=== PATIENT | female | born 1975 ===

== ENCOUNTER 2024-11-30 07:32 | Outpatient (REF) | payer BC, SELFPAY ==
--- NOTE | ~2024-11-30 | CT_ITS ---
EXAMINATION: CT CHEST WITHOUT CONTRAST CLINICAL INFORMATION: Interstitial pulmonary disease, unspecified. J64.9. COMPARISON: May 31, 2023. TECHNIQUE: Multidetector volumetric CT imaging of the chest was done. Axial MIP volume rendering provided. Sagittal and coronal reformatted images were obtained. This CT examination was performed using dose optimization techniques as appropriate, variously including the following: *Automated exposure control *Adjustment of mA and/or kV according to patient size (this includes techniques or standardized protocols for targeted exams where dose is matched to indication/reason for exam; i.e. extremities or head) *Use of iterative reconstruction technique DLP: 123 mGy centimeter. FINDINGS: CASHIER: Good inspiration exam. Cardiomediastinal silhouette size is normal. Vascular clips right upper quadrant abdomen. Patient's large body habitus. Both upper extremities at the size of the head. LUNGS: Multifocal, nonconfluent, peripheral areas of bronchiectasis and or honeycombing involving mostly the upper and to a lesser extent lower lung lobes. No gross pulmonary nodules. Respiratory airways is patent.. No gross volume loss. No hyperinflation. MEDIASTINUM: Nonspecific prominent less than 1 cm lymph nodes. The heart is small. Small pericardial effusion. No aneurysm in the thoracic aorta. Calcified plaques in the coronary arteries. Prominent left thyroid lobe. Hiatal hernia, small to moderate size. CORONARY ARTERY CALCIFICATION: Calcified plaques in the LAD. PLEURA: No calcified pleural plaques. No pneumothorax. No hemothorax. No pleural effusion. AXILLA: Nonspecific prominent, less than 16 mm lymph nodes, bilaterally. UPPER ABDOMEN: Hiatal hernia, small to moderate size. Vascular clips at the gallbladder fossa likely prior cholecystectomy.. OSSEOUS STRUCTURES: Mild multilevel spondylosis without acute fracture or listhesis. Sternum is intact. No acute rib fractures. CT/CT chest wo IV con IMPRESSION: . Multifocal, peripheral, bronchiectasis and honeycombing, bilaterally. Overall stable appearance of the lungs/chest.. Fleischner guidelines were followed. Electronically signed by: Ti Pillai MD 11/30/2024 08:36 AM EDT
--- OUTSIDE RECORDS SUMMARY | 2024-11-30 07:36 | XMS_ITS | Clinical Summary ---
Author Organization [facility] Address [address] [facility] [address] [place] [address] Phone Care Team Providers Care Service Or Work Dispatcher Name Role Phone Meghann Roth MD Primary Care Provider Allergies Active Allergy Reactions Criticality Noted Date Comments Sulfa (Sulfonamide Antibiotics) Rash Low 10/21 Medications cycloSPORINE (RESTASIS) 0.05 % suspension Place 1 drop into each eye 2 (two) times a day. 3 Active albuterol 90 mcg/actuation inhaler Inhale 2 puffs into the lungs every 6 (six) hours as needed for wheezing. Active syringe with needle 1 mL 25 gauge x 5/8 SyrgIndication s:Seropositive rheumatoid arthritis Use to inject methotrexate once weekly as directed 50 each 1 4 Active sharps bin-insulin syrin-needl 1/2 mL 30 x 1/2 Syrg 1 each by Miscellaneous route as needed. 1 each 4 Active folic acid (FOLVITE) 1 MG tablet Take 1 tablet (1 mg total) by mouth daily. Except the day you take your methotrexate 90 tablet 1 4 Active riTUXimab (RITUXAN) 10 mg/mL injectionIndic ations:Rheumat oid arthritis involving multiple sites with positive rheumatoid factor Inject 100 mL (1000 mg total) into the vein in Week 0, Week 2, then every 26 weeks 300 mL 4 5 Active DULoxetine (CYMBALTA) 30 MG capsule Take 30 mg by mouth daily. Active hydroxychloroq uine (PLAQUENIL) 200 mg tabletIndicati ons:Long-term use of Plaquenil Take with food as follows: 1.5 tabs once daily OR 1 tab alternating with 2 together for average dose 300 mg daily 135 tablet 1 5 Active cevimeline (EVOXAC) 30 mg capsuleIndicat ions:Secondary Sjogren's syndrome Take 1 capsule (30 mg total) by mouth 3 (three) times a day. With food as needed for dry mouth 270 capsule 1 5 Active methotrexate sodium 25 mg/mL injectionIndic ations:Seropos itive rheumatoid arthritis Inject 0.8 mL (20 mg total) under the skin once a week. rotate injection sites 12 mL 5 Active omeprazole (PRILOSEC) 20 MG capsule TAKE 1 CAPSULE(20 MG) BY MOUTH DAILY 30 MINUTES BEFORE A MEAL NEEDED FOR HEARTBURN 90 capsule 5 Active Active Problems Problem Noted Date Diagnosed Date Encounter for monitoring rituximab therapy 03/02 Assessment & Plan (07/11/2024 5:44 PM EDT): Request most recent lung imaging from [facility]. I have ordered immunoglobulins to be drawn with routine labs prior to upcoming rituximab cycle. Assessment & Plan (03/02/2024 9:24 AM EST): Routine monitoring labs and baseline quant TB with next routine lab draw Microcytic anemia 03/02/2024 Assessment & Plan (03/02/2024 9:26 AM EST): Unlikely to be due directly to rheumatoid arthritis or rheumatoid arthritis medications; ? underlying thalassemia Postmenopausal 03/02/2024 Encounter for methotrexate monitoring 01/11/2024 Assessment & Plan (03/02/2024 9:25 AM EST): No AEs to current SC dose; compliant with folic acid Assessment & Plan (01/11/2024 1:36 PM EDT): Updated HCV and quant TB testing with routine labs today. She is amenable to flu shot. Vitamin D deficiency, unspecified 01/11/2024 Overview (01/11/2024): Menopause 2022 Assessment & Plan (01/11/2024 1:37 PM EDT): Baseline D; discussion of baseline DEXA deferred to next f/u Seropositive rheumatoid arthritis 12/20/2022 Overview (07/11/2024): Dx'd in her 30s; no Raynaud's; RA-ILD follows with transport coordinator Dr. Hoang at [facility] Multiple DMARDs ultimately lost efficacy, including: Methotrexate (oral resulted in nausea) [no SC methotrexate] Leflunomide Etanercept Adalimumab Infliximab Tocilizumab SC (?) abatacept Tofacitinib Upadacitinib [No sarilumab] Rituximab 06/2023 - current Assessment & Plan (07/11/2024 5:42 PM EDT): Remains with highly active and disabling disease with associated ILD. She reports significant symptomatic improvement only in the past week. She has been on high- dose prednisone taper starting at 60 mg daily, currently on 20 mg daily. She is due for her next rituximab cycle and will call to schedule. She should continue hydroxychloroquine given that she has failed or been unable to tolerate both methotrexate and leflunomide. I have sent new prescription to continue slow prednisone taper by 5 mg every 2 weeks. Assessment & Plan (03/02/2024 9:24 AM EST): Severe disease but symptomatic benefit of very recent rituximab infusion plus prednisone 15 mg daily; tolerating SC methotrexate w/o AEs. Trial decrease prednisone to 10 mg daily and will taper slowly as tolerated. Clinical monitoring to determine if / when to repeat rituximab cycle (will likely need at the 4 month rather than 6 month mel). 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 Prolonged AM stiffness of >4 hours (longstanding baseline). She has had loss of efficacy to multiple DMARDs as above; documented to have significant improvement following her first 2 rituximab cycles but now with clearly active and disabling disease. Lengthy d/w patient re: tx options today, specifically switch to sarilumab +/- methotrexate SC or continued / more frequent rituximab cycles +/- methotrexate SC. She is amenable to adding SC methotrexate to current rituximab regimen and possibly decreasing her dosing interval from q6 to q4-5 months. I have also sent rx for prednisone taper 15 mg daily taper by 5 mg every 10 days for short term benefit. She would like to be seen in [place] for 2nd opinion, which I agree is reasonable. 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 Assessment & Plan (10/24/2023 4:33 PM EDT): Seropositive rheumatoid arthritis much better controlled after 2 doses of Rituxan infusion. He has chronic deformities but no active synovitis. Her next infusion is not due until January of this year. Sent her for some baseline labs today. Suggested she use a plexiglass barrier during cold and flu season. She will bring in her [facility] paperwork which I will sign. Assessment & Plan (06/20/2023 1:40 PM EDT): Seropositive rheumatoid arthritis not controlled on Actemra. She has warm and painful synovitis in multiple joints. She also has lung involvement with interstitial lung disease and increased shortness of breath and cough. I will discontinue Actemra and start her on Rituxan infusions 14 days apart. Repeat Rituxan every 6 months. She can use prednisone rarely as needed. Gave her an intramuscular injection of triamcinolone 80 mg to help relieve her stiffness and swelling. Assessment & Plan (04/24/2023 6:41 PM EST): Seropositive rheumatoid arthritis not controlled on weekly Actemra injections and as needed prednisone. She has been off her medication for a while since she was recovering from her COVID-pneumonia and strep. It will take a while for her to regain her baseline. She will be seeing Dr. Hoang soon for pulmonary opacities which could be either from the COVID and pneumonia or from rheumatoid arthritis. I have asked her to only use prednisone as needed. Assessment & Plan (12/20/2022 1:55 PM EDT): Seropositive rheumatoid arthritis not controlled with active synovitis and prolonged morning stiffness on daily Rinvoq. She has previously been treated on several other medications which stopped working. We will start her on weekly injections of Actemra with the hope that it controls the inflammation. We will get some basic labs today including hepatitis B, C and QuantiFERON gold. Primary osteoarthritis involving multiple joints 12/20/2022 Assessment & Plan (10/24/2023 4:34 PM EDT): Your arthritis in multiple joints with no swelling. She can continue with Tylenol arthritis as needed. Assessment & Plan (06/20/2023 1:36 PM EDT): Osteoarthritis in multiple joints. She can use Tylenol arthritis as needed Assessment & Plan (04/24/2023 6:42 PM EST): Osteoarthritis in multiple joints. She can take Tylenol 650 mg as needed. Assessment & Plan (12/20/2022 1:56 PM EDT): Osteoarthritis in multiple joints with more pain at the end of her busy day. She can safely try Tylenol arthritis 650 mg as needed. Secondary Sjogren's syndrome 12/20/2022 Overview (07/11/2024): Pilocarpine switched to cevimeline for efficacy 02/2024 Assessment & Plan (07/11/2024 5:40 PM EDT): Tolerating cevimeline with improved symptomatic benefit compared to pilocarpine Assessment & Plan (07/11/2024 5:39 PM EDT): >>ASSESSMENT AND PLAN FOR SJOGREN'S SYNDROME WITH KERATOCONJUNCTIVITIS SICCA WRITTEN ON 12/20/2022 1:57 PM BY VANNESSA REEVES MD Secondary Sjogren's syndrome with keratoconjunctivitis sicca and dry eyes and dry mouth. Continue with Restasis and rewetting eyedrops. Her symptoms should improve once her overall inflammation is controlled. Assessment & Plan (07/11/2024 5:39 PM EDT): >>ASSESSMENT AND PLAN FOR SJOGREN'S SYNDROME WITH KERATOCONJUNCTIVITIS SICCA WRITTEN ON 04/24/2023 6:42 PM BY VANNESSA REEVES MD Sicca symptoms from secondary Sjogren's due to seropositive RA. She can continue with pilocarpine as needed. Assessment & Plan (07/11/2024 5:39 PM EDT): >>ASSESSMENT AND PLAN FOR SJOGREN'S SYNDROME WITH KERATOCONJUNCTIVITIS SICCA WRITTEN ON 06/20/2023 1:36 PM BY VANNESSA REEVES MD Secondary Sjogren's with continued dry eyes and dry mouth. Continue with Salagen and Restasis eyedrops. Assessment & Plan (07/11/2024 5:39 PM EDT): >>ASSESSMENT AND PLAN FOR SJOGREN'S SYNDROME WITH KERATOCONJUNCTIVITIS SICCA WRITTEN ON 10/24/2023 4:34 PM BY VANNESSA REEVES MD Sicca symptoms due to Sjogren's. Continue with pilocarpine as needed. Assessment & Plan (07/11/2024 5:39 PM EDT): >>ASSESSMENT AND PLAN FOR SJOGREN'S SYNDROME WITH KERATOCONJUNCTIVITIS SICCA WRITTEN ON 03/02/2024 9:25 AM BY TRINI BRISENO MD, MPH Trial cevimeline to replace pilocarpine, which is only sometimes effective Encounters Date Type Department Care Team Description 09/24/2024 8:30 AM EDT Infusion [facility] [address] [place] [address] Trini Briseno MD, MPH Seropositive rheumatoid arthritis (Primary Dx) 09/17/2024 Refill [facility] Rheumatology [address] [place] [address] Trini Briseno MD, MPH Medication Refill from Last 3 Months Immunizations Immunization Administration Dates Next Due INFLUENZA, SPLIT VIRUS, TRIVALENT PF 01/11/2024 Family History Medical History Relation Comments Rheumatoid arthritis Maternal Aunt Rheumatoid arthritis Paternal Cousin Relation Status Comments Maternal Aunt Paternal Cousin Social History Tobacco Use Types Packs/Day Years Used Date Smoking Tobacco: Never Smokeless Tobacco: Never Tobacco Cessation:Counseling Given: Not Answered Alcohol Use Standard Drinks/Week Comments Yes 0 (1 standard drink = 0.6 oz pur e alcohol) occassionally Education Answer Date Recorded Are you interested in more education? Not on deric e 10/06/2022 Are you concerned about learning? Not on file 10/06/2022 No 10/06/2022 No 10/06/2022 Digital Access Answer Date Recorded No 10/06/2022 No 10/06/2022 Reliable internet access at home? Not on file 10/06/2022 Device with a working camera? Not on file Comments Unknown Sex and Gender Information Value Date Recorded Sex Assigned at Not on file Legal Sex Female 1:11 PM EDT Gender Identity Not on file Sexual Orientation Not on file Last Filed Vital Signs Vital Sign Reading Time Taken Comments Blood Pressure 140/85 09/24/2024 2:17 PM EDT Pulse 98 09/24/2024 2:17 PM EDT Temperature 36.4 C (97.5 F) 09/24/2024 2:17 PM EDT Respiratory Rate 18 09/24/2024 2:17 PM EDT Oxygen Saturation 96% 09/24/2024 2:17 PM EDT Inhaled Oxygen Concentration - - Weight 77.6 kg (171 lb) 09/24/2024 8:30 AM EDT Height 162.6 cm (5' 4.02 ) 07/11/2024 3:18 PM ED T Body Mass Index 29.34 07/11/2024 3:18 PM EDT Plan of Treatment Upcoming Encounters Date Type Department Care Team (Late st Contact Info) Description 12/03/2024 10:10 AM EDT Office Visit [facility] Rheumatology [address] [place] [address] Trini Briseno MD, MPH [address] [facility], [address] [place] [address] 12/26/2024 8:15 AM EDT Appointment [facility], Bone Density - [facility] [address] [place] [address] Trini Briseno MD, MPH [address] [place] [address], [address] [place] [address] [email or web address] Health Maintenance Due Date Last Done Comments LIPID PANEL 1973 DEPRESSION SCREENING 1985 HIV ONE-TIME SCREENING (18-65 YEARS) 10/21/1991 ZOSTER VACCINES (1 of 2) 1992 PAP SMEAR 1994 COLOGUARD 2018 COLONOSCOPY 2018 COLORECTAL CANCER SCREENING 2018 FIT TEST 2018 FOBT 2018 SIGMOIDOSCOPY 2018 VIRTUAL COLONOSCOPY 2018 PNEUMOCOCCAL VACCINES (50+ years) (2 of 2 - PCV) 10/28/2018 10/28/2017 INFLUENZA VACCINE (#1) 2024 , 03/18/2023, 11/23/2020, Additional history exists COVID-19 VACCINE ( season) 2024 02/09/2021, 05/27/2020 MAMMOGRAM 07/21/2025 07/22/2023, 10/06/2021 Adult Td,Tdap Booster 10/29/2025 10/30/2015 SCREENING FOR DIABETES 08/28/2027 08/27/2024 HEPATITIS C SCREENING Completed 01/11/2024 SMOKING STATUS SCREENING (Once After 26 Yrs) Completed 07/11/2024 HEPATITIS A VACCINES Aged Out No long er eligible based on patient's age to complete this topic HIB VACCINES Aged Out No longer eligi ble based on patient's age to complete this topic MENINGOCOCCAL VACCINES (ACWY) Aged Out No longer eligible based on patient's age to complete this topic MENINGOCOCCAL VACCINES (B) Aged Out N o longer eligible based on patient's age to complete this topic Medical Devices Not on file Procedures Procedure Name Priority Date/Time Associated Diagnosis Comments HEPATITIS C ANTIBODY, QUALITATIVE Routine 01/11/2024 10:51 AM EDT High risk medication use from Last 3 Months or Most Recently Relevant to Health Maintenance Results * Hepatitis C antibody, qualitative (01/11/2024 10:51 AM EDT) HCV NON-REACTIV E NON-REACTI VE [facility] Blood 01/11/2024 10:5 1 AM EDT 01/11/2024 10:59 AM EDT us Trini Briseno MD, MPH LAB BLOOD ORDERABLES Fin al Result [facility] [address] [place] [address] from Last 3 Months or Most Recently Relevant to Health Maintenance Insurance [employer] [facility] [employer] [facility] [employer] [facility] Care Teams Service Or Work Dispatcher Relationship Specialty Start Date End Date Meghann Roth MD [address] [id number] PCP - General Family Medicine 10/18/23 Additional Source Comments The information contained in this document represents components of the legal health record. It is not the complete legal health record.[facility]
--- OUTSIDE RECORDS SUMMARY | 2024-11-30 07:36 | XMS_ITS | Patient Health Record ---
Author Organization [facility] Address [address] [place] [address] Care Team Providers Care Medicaid Billing Clerk Name Role Phone Cayden Vick MD, Shawna Camp Primary Care Prov ider Unavailable Black, Mary Unavailable [phone] Allergies Allergen (clinical drug ingredient) Drug/Non Drug Allergy documented on EMR Reaction Allergy Type Onset Date Status sulfa Unknown Drug Allergy Active Reason For Referral No Information Medications Medication SIG (Take, Route, Fr equency, Duration) Notes Start Date End Date Status Enbrel Active Leflunomide 10 MG 1 tablet Orally Once a day Active Social History Tobacco use other than smoking: Question Answer Notes Are you an other tobacco user? No Problems Problem Type SNOMED Code ICD Code Onset Dates Problem Status W/U Status Risk Notes Problem Rheumatoid arthritis (07378103) Rheumatoid arthritis (M06.9) Active confirmed Problem Sjogrens syndrome (77548579) Sjogrens syndrome (M35.00) Active confirmed Plan Of Treatment No Information Insurance Providers Payer Name Payer Address Payer Phone Subscriber Number Group Number Insured Name Patient Relationship to Insured Coverage Start Date Coverage End Date [facility] [address] [place] [address] [id number] Adalberto Cazares Spouse - patient is the spouse of the insured Medical (General) History Medical History History ICD Code rheumatoid arthritis asthma Sinus conditions Sjogren syndrome Surgical History Surgery Date(Month/Year) cholecystectomy 1991 Hospitalization History Reason Date(Month/Year) [facility] [place] pt had the flu & pneumo inderjit 04/25/16
== END 2024-11-30 07:33 | disposition home or self-care (01) ==
LOC: HO.CT 07:32
PROVIDERS: PCP Student in an Organized Health Care Education/Training Program; Visit Provider Hospitalist
DX: J84.9 Interstitial pulmonary disease, unspecified (principal)
CPT/HCPCS: 71250

== ENCOUNTER → 2024-11-30 07:35 | Outpatient (BNV) | payer BC, SELFPAY | PROVIDERS: PCP Student in an Organized Health Care Education/Training Program; Visit Provider Radiology Diagnostic Radiology | DX: J47.9 Bronchiectasis, uncomplicated (principal) | CPT/HCPCS: 71250 ==

== ENCOUNTER 2024-12-10 08:36 | Outpatient (AMB) | payer BC, SELFPAY ==
--- NOTE | 2024-12-10 08:43 | MHC.OFFVIS ---
Vital Signs 12/10/24 08:44 Height 5 ft 4 in Weight 170 lb 13.732 oz BMI 29.3 BP 114/58 L Blood Pressure Location Lt brachial Position Sitting Pulse 81 Pulse Source Pulse Oximeter Pulse Oximetry (%) 99 Oxygen Delivery Method Room Air Intake Visit Reasons: [employer] Salesperson Required: No Allergies Sulfa Drugs Adverse Reaction (Severe, Uncoded 08/07/24 14:23) Rash HPI Comments Details: The patient is a 49 year woman with known history of rheumatoid arthritis and connective tissue disease. she was being evaluated for chest discomfort. She did undergo a CT scan of the chest from 2019 at [facility] that I personally reviewed. It demonstrated she had evidence of subpleural interstitial lung disease in addition to that thickening of the pleura suggesting component of pleuritis. This has resulted in significant discomfort with pleuritic chest pain and shortness of breath. Moderate to severe. She is also having increasing shortness of breath. Currently she is on Actemra for connective tissue disease but she continues to be active. After reviewing her last CT scan of the chest it appears that the findings are consistent with her underlying connective tissue disease. Previously she did undergo a bronchoscopy and she did have a MRSA infection. At this point she has not congested will have any signs or symptoms to suggest a lower respiratory infection. Therefore, I did speak to her bakery demonstrator and did recommend considering rituximab as a way to treat her connective tissue disease and also her underlying interstitial lung disease. 06/09/2023 the patient is here for a pulmonary follow-up visit. Overall she still complains of the pleuritic chest discomfort. Moderate severity. Although seems better than the last time she came in. She also continues to have ongoing discomfort of her small joints. The patient also has a dry mouth. All consistent with her diagnosis of RA and also Sjogren's disease. She is tried multiple medications and really have not had good control of her symptoms. The patient also had a CT scan of chest which we personally reviewed. Is consistent with reticular disease consistent with interstitial disease related to her underlying connective tissue disease. Appears to be more fibrotic in nature therefore is at risk for developing UIP like pattern. she will be following up with her bakery demonstrator. It is reassuring that she does not have any ground-glass opacities. If indeed there is any worsening of disease progression of the interstitial lung disease will send consider Ofev. In the meantime the patient will follow-up with Rheumatology regarding the possibility of starting rituximab as a very good option to treat her connective tissue disease and also her underlying interstitial lung disease I did advise him to get vaccinated. She will get her Prevnar vaccine today. She should all her vaccines up-to-date before starting Rituxan since it will likely affect her ability to have effective response to vaccines. I also personally reviewed her PFTs demonstrating a mild restrictive ventilatory defect consistent with interstitial lung disease and also mild diffusion impairment secondary to the above. 09/13/2023 the patient is here for pulmonary follow-up visit. She did start the Rituxan. He is tolerating it well. Initially she did have some adverse symptoms. There were transient. She did require some steroids while on the Rituxan. Now she is completely off. She is working on weight management. She has been exercising more regularly since she is less short of breath. The patient feels like she is able to do more physical activity without becoming breathless. This is all reassuring. We can hold off on antifibrotic therapy based on her improvement. Will have her come back in about 6-7 months with PFTs to see her response to therapy. She is going to go for blood work today. When she comes back during her follow-up will decide about further imaging studies done. 05/03/2024 the patient is here for pulmonary follow-up visit. The patient overall has been doing okay. Although she still having hard time with her arthritis. Still having significant discomfort. Specially the small joints. She has been on Rituxan and also methotrexate and still not reaching that good control. She is looking to get 2nd opinion in [place]. From a pulmonary standpoint the patient did have pulmonary function studies today. She does have dyspnea on exertion. Mild the in severity. Her PFTs did demonstrate a mild restriction consistent with interstitial lung disease. Her last CT scan was back in the spring. Will go ahead and repeat her CT scan in the next 6 months to see the progression if any of disease. In the meantime current therapy for her connective tissue disease that will continue to try to treat the inflammatory changes of the lungs. For her respiratory symptoms specially since getting worse will going to go ahead and start her on a maintenance inhaler disease that is provide some relief as well. 12/10/2024 the patient is here for a pulmonary follow-up visit. Overall she is doing well from a respiratory status. Apparently last week she did have some pleuritic discomfort in the left hemithorax [id number] severity. Pleuritic in nature. But today is actually gone. She is feeling better. She continues some Rituxan. She did follow-up with Rheumatology. They did recommend going up to [place] for secondary opinion. They did bring up the question of a seipoint nerve stimulator for the vagus nerve that has been shown to help with connective tissue conditions. She is going to follow-up with them at that time for now she will continue on therapy. We did review her recent CT scan of the chest. Personally by me. I do not see any significant progression of her interstitial lung disease at this time which is reassuring. Seems to responding to the current regimen well. If she does develop some recurrent pleuritic discomfort she can always take some Motrin as needed. I will send her a script to the pharmacy. [facility] Medical History (Updated 08/07/24 @ 14:23 by Felicita Avelar) Axillary adenopathy Pleuritic chest pain Asthma Pleuritis ILD (interstitial lung disease) Rheumatoid arthritis Social History Patient Tobacco Use Status: Never used Tobacco Review of Systems Const Denies fever(s) and Denies malaise Eyes Reports dry eyes ENT Reports dry mouth Card Denies chest pain and Reports dyspnea on exertion Resp Denies pain on inspiration, Denies pain with cough, Reports dyspnea on exertion and Denies wheezing GI Reports no additional complaints Musc Reports myalgias, Reports deformity, Reports arthralgias, Reports joint swelling and Reports stiffness Skin/Breast Denies rash Neuro Reports no additional complaints Felice/Lymph Denies lymphadenopathy Aller/Immun Denies wheezing Physical Exam Vital Signs: Last Vital Signs Pulse 81 12/10/24 08:44 BP 114/58 L 12/10/24 08:44 Pulse Ox 99 12/10/24 08:44 Oxygen Delivery Method Room Air 12/10/24 08:44 BMI result Body Mass Index 29.3 Const General: comfortable HEENT Head: Yes normocephalic Neck Neck: Yes supple Chest Chest palpation & inspection: normal inspection of the chest Resp Effort & Inspection: normal respiratory effort Auscultation: diminished lung sounds Cardio Heart sounds: S1 normal heart sound present and S2 normal heart sound present GI Palpation (GI): Soft to palpation Skin General skin exam: no rashes or lesions noted Extrem General: Yes no clubbing, cyanosis or edema Assessment & Plan Assessment & Plan (1) ILD (interstitial lung disease): Code(s): J84.9 - Interstitial pulmonary disease, unspecified Category: Medical (2) Asthma: Code(s): J45.909 - Unspecified asthma, uncomplicated Category: Medical Qualifiers: Asthma severity: mild Asthma persistence: intermittent Asthma complication type: uncomplicated Qualified Code(s): J45.20 - Mild intermittent asthma, uncomplicated (3) Pleuritis: Code(s): R09.1 - Pleurisy Category: Medical (4) Pleuritic chest pain: Code(s): R07.81 - Pleurodynia Category: Medical (5) Rheumatoid arthritis: Code(s): M06.9 - Rheumatoid arthritis, unspecified Category: Medical Qualifiers: Rheumatoid arthritis location: unspecified site Rheumatoid factor presence: unspecified presence Qualified Code(s): M06.9 - Rheumatoid arthritis, unspecified Plan SARAH BETH as needed continue Rituxan no OFEV, no evidence of ILD progression benzonates as needed start Astelin nasal spray Advair HFA NSAIDS as needed barium swallow F/U 6 months Orders: Orders [place] barium swallow Today K21.9 - Gastro-esophageal reflux disease without esophagitis Medications: New azelastine administer into each nostril 2 sprays intranasal BID 30 mL 6RF 30 days ibuprofen 600 mg PO Q8H PRN 30 tabs 0RF pain 30 days Coding Level of Care Code Est Pt Level 4 (23742) Complex EM visit Add On G2211 Diagnoses ILD (interstitial lung disease) J84.9 Mild intermittent asthma without complication J45.20 Asthma severity: mild Asthma persistence: intermittent Asthma complication type: uncomplicated Pleuritis R09.1 Pleuritic chest pain R07.81 Rheumatoid arthritis, involving unspecified site, unspecified whether rheumatoid factor present M06.9 Rheumatoid arthritis location: unspecified site Rheumatoid factor presence: unspecified presence Time Spent (min) 17
[2024-12-10 08:44] VITALS: BP 114/58; PULSE 81; O2SAT 99; BMI 29.3
--- OUTSIDE RECORDS SUMMARY | 2024-12-10 09:57 | XMS_ITS | Encounter Summary ---
Author Organization [facility] Address [address] [place] [address] Phone Care Team Providers Care Battery Builder Name Role Phone Meghann Roth MD Primary Care Provider [phone] Reason for Visit * Reason Onset Date Comments Imaging 12/03/2024 Encounter Details Date Type Department Care Team (Late st Contact Info) Description 12/03/2024 Telephone [facility] Rheumatology [address] [place] [address] Trini Hernandez MD, MPH [address], [address] [place] [address] [email or web address] Imaging Social History Tobacco Use Types Packs/Day Years Used Date Smoking Tobacco: Never Smokeless Tobacco: Never Alcohol Use Standard Drinks/Week Comments Yes 0 [...] on file Sexual Orientation Not on file documented as of this encounter Progress Notes * Jaja Boucher MA - 12/05/2024 1:53 PM EDT 11/30/2024 CT Chest obtained and uploaded to patient's chart. Can be found in Media. * Emely Caal CMA - 12/03/2024 11:28 AM EDT Request faxed to [facility] * Trini Hernandez MD, MPH - 12/03/2024 10:35 AM EDT Pls track down CT chest findings [place] 11/2024 ty documented in this encounter Plan of Treatment Upcoming Encounters Date Type Department Care Team (Late st Contact Info) Description 12/26/2024 8:15 AM EDT Appointment [facility], [facility] [address] [place] [address] Trini Hernandez MD, MPH [address] [place] [phone] 01/07/2025 1:10 PM EDT Office Visit [facility] Rheumatology [address] [place] [phone] Trini Hernandez MD, MPH [address] [place] [phone] documented as of this encounter Visit Diagnoses Not on filedocumented in this encounter Care Teams Battery Builder Relationship Specialty Start Date End Date Meghann Roth MD [address] [phone] PCP - General Family Medicine 10/18/23 documented as of this encounter Additional Source Comments The information contained in this document represents components of the legal health record. It is not the complete legal health record.[facility]
--- OUTSIDE RECORDS SUMMARY | 2024-12-10 09:57 | XMS_ITS | Encounter Summary ---
Author Organization [facility] Address [address] [place] [address] Phone Care Team Providers Care Geoint Analyst Name Role Phone Meghann Roth MD Primary Care Provider [phone] Reason for Referral * MRI/CAT Scan - Closed Specialty Diagnoses / Procedures Referred By Contac t Referred To Contact Radiology Procedures Outside CT Chest Report Only [facility] Rheumatology [address] [place] [address] [place] [address] Phone: tel: fax: Referral ID Status Reason Start Date Expiration Date Visits Re quested Visits Authorized [id number] Closed 12/05/2024 1 1 Encounter Details Date Type Department Care Team (Late st Contact Info) Description 12/05/2024 Orders Only [facility] Rheumatology [address] [place] [address] Nany Woodard MD [address] [place] [phone] Social History Tobacco Use Types Packs/Day Years [...] on file documented as of this encounter Plan of Treatment Upcoming Encounters Date Type Department Care Team (Late st Contact Info) Description 12/26/2024 8:15 AM EDT Appointment [facility], Bone Density - [facility] [address] [place] [address] Trini Hernandez MD, MPH [address] [place] [phone] 01/07/2025 1:10 PM EDT Office Visit [facility] Rheumatology [address] [place] [phone] Trini Hernandez MD, MPH [address] [place] [phone] documented as of this encounter Procedures Procedure Name Priority Date/Time Associated Diagnosis Comments OUTSIDE CT CHEST REPORT ONLY Routine 11/30/2024 1:52 PM EDT documented in this encounter Results * Outside CT??Chest Report Only (11/30/2024 1:52 PM EDT) us Historical Provider MD SCHNE[facility]ER CT CHEST Final Res ult documented in this encounter Visit Diagnoses Not on filedocumented in this encounter Care Teams Geoint Analyst Relationship Specialty Start Date End Date Meghann Roth MD [address] [phone] PCP - General Family Medicine 10/18/23 documented as of this encounter Additional Source Comments The information contained in this document represents components of the legal health record. It is not the complete legal health record.[facility]
--- OUTSIDE RECORDS SUMMARY | 2024-12-10 09:57 | XMS_ITS | Clinical Summary ---
Author Organization [facility] Address [address] [facility] [address] [place] [address] Phone Care Team Providers Care Physiology Teacher Name Role Phone Meghann Roth MD Primary Care Provider Allergies Active Allergy Reactions Criticality Noted Date Comments Sulfa (Sulfonamide Antibiotics) Rash Low 10/21 Medications cycloSPORINE (RESTASIS) 0.05 % suspension Place 1 drop into each eye 2 (two) times a day. 08/25/19 23 Active albuterol 90 mcg/actuation inhaler Inhale 2 puffs into the lungs every 6 (six) hours as needed for wheezing. Active sharps bin-insulin syrin-needl 1/2 mL 30 x 1/2 Syrg 1 each by Miscellaneous route as needed. 1 each 01/11/20 24 Active folic acid (FOLVITE) 1 MG tablet Take 1 tablet (1 mg total) by mouth daily. Except the day you take your methotrexate 90 tablet 1 01/11/20 24 Active riTUXimab (RITUXAN) 10 mg/mL injectionIndic ations:Rheumat oid arthritis involving multiple sites with positive rheumatoid factor Inject 100 mL (1000 mg total) into the vein in Week 0, Week 2, then every 26 weeks 300 mL 4 05/15/19 25 Active DULoxetine (CYMBALTA) 30 MG capsule Take 30 mg by mouth daily. Active cevimeline (EVOXAC) 30 mg capsuleIndicat ions:Secondary Sjogren's syndrome Take 1 capsule (30 mg total) by mouth 3 (three) times a day. With food as needed for dry mouth 270 capsule 1 07/12/19 25 Active methotrexate sodium 25 mg/mL injectionIndic ations:Seropos itive rheumatoid arthritis Inject 0.8 mL (20 mg total) under the skin once a week. rotate injection sites 12 mL 07/17/19 25 Active omeprazole (PRILOSEC) 20 MG capsule TAKE 1 CAPSULE(20 MG) BY MOUTH DAILY 30 MINUTES BEFORE A MEAL NEEDED FOR HEARTBURN 90 capsule 09/18/19 25 Active hydroxychloroq uine 300 mg TabIndications :Seropositive rheumatoid arthritis Take 300 mg by mouth daily. 90 tablet 1 12/04/19 25 Active syringe with needle 1 mL 25 gauge x 5/8 SyrgIndication s:Seropositive rheumatoid arthritis Use to inject methotrexate once weekly as directed 50 each 1 12/04/19 25 Active syringe with needle 1 mL 25 gauge x 5/8 SyrgIndication s:Seropositive rheumatoid arthritis Use to inject methotrexate once weekly as directed 50 each 1 01/11/20 24 025 Discontin ued(Reord er) hydroxychloroq uine (PLAQUENIL) 200 mg tabletIndicati ons:Long-term use of Plaquenil Take with food as follows: 1.5 tabs once daily OR 1 tab alternating with 2 together for average dose 300 mg daily 135 tablet 1 07/12/19 25 025 Discontin ued(Dose adjustmen t) Active Problems Problem Noted Date Diagnosed Date Long-term use of Plaquenil 12/03/2024 Assessment & Plan (12/03/2024 11:05 AM EDT): Baseline visual field test scheduled for next month (12/2024). Current dose is appropriate at 4.0 mg/kg/day. Encounter for monitoring rituximab therapy 03/02 Assessment & Plan (12/03/2024 11:04 AM EDT): Most recent CT chest from [facility] [place] requested for my review. Assessment & Plan (07/11/2024 5:44 PM EDT): Request most recent lung imaging from [facility] [place]. I have ordered immunoglobulins to be drawn [...] for methotrexate monitoring 01/11/2024 Assessment & Plan (12/03/2024 11:04 AM EDT): Tolerating subcu methotrexate as prescribed Assessment & Plan (03/02/2024 9:25 AM EST): [...] next f/u Seropositive rheumatoid arthritis 12/20/2022 Overview (12/03/2024): Dx'd in her 30s; no Raynaud's; RA-ILD follows with geometrician Dr. Hoang at [facility] [place] Multiple DMARDs ultimately lost efficacy, including: Methotrexate (oral resulted in nausea) Leflunomide Etanercept Adalimumab Infliximab Tocilizumab SC (?) abatacept Tofacitinib Upadacitinib [No sarilumab] Rituximab 06/2023 - current; most recent cycle AugustSeptember 2024 Assessment & Plan (12/03/2024 11:04 AM EDT): Persistently highly active disease with comorbid ILD and progressively painful deformities of the small joints of the right hand in particular. Morning stiffness has improved but remains up to 1 hour in duration. We discussed potential benefit of adding the set point device to her current regimen, and she will investigate this option. She is at high risk for progression of joint deformity and extra- articular disease. Updated disease monitoring labs today. Assessment & Plan (07/11/2024 5:42 PM EDT): [...] She would like to be seen in [place] for 2nd opinion, which I agree is reasonable. 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 Assessment & Plan (10/24/2023 4:33 PM EDT): Seropositive rheumatoid arthritis much better controlled after 2 doses of Rituxan infusion. He has chronic deformities but no active synovitis. Her next infusion is not due until January of this year. Sent her for some baseline labs today. Suggested she use a plexiglass barrier during cold and flu season. She will bring in her [facility] paperwork which I will sign. Assessment [...] cevimeline for efficacy 02/2024 Assessment & Plan (12/03/2024 11:02 AM EDT): Persistently severe oral sicca and dysphagia despite compliance with cevimeline. Discussed virgin coconut oil pulling technique in addition to pharmacologic management. She does have regular dental care, and her dentist has recommended use of Biotene products. Assessment & Plan (07/11/2024 5:40 PM EDT): [...] SICCA WRITTEN ON 03/02/2024 9:25 AM BY JIM BRISENO MD, MPH Trial cevimeline to replace pilocarpine, which is only sometimes effective Encounters Date Type Department Care Team Description 12/05/2024 Orders Only [facility] [address] [place] [address] [place] [address] Nany Woodard MD 12/03/2024 10:58 AM EDT - 12/03/2024 11:59 PM EDT Hospital Encounter [facility] [address] [place] [address] [place] [address] Jim Briseno MD, MPH Discharge Disposition: Home or Self Care 12/03/2024 10:10 AM EDT Office Visit [facility] [address] [place] [address] [place] [address] Jim Briseno MD, MPH Seropositive rheumatoid arthritis (Primary Dx); Encounter for methotrexate monitoring; Long-term use of Plaquenil; Vitamin D deficiency, unspecified; Encounter for monitoring rituximab therapy; Microcytic anemia; Secondary Sjogren's syndrome 12/03/2024 Telephone [facility] [address] [place] [address] Jim Briseno MD, MPH Imaging 09/24/2024 8:30 AM EDT Infusion [facility] [address] [place] [address] Jim Briseno MD, MPH Seropositive rheumatoid arthritis (Primary Dx) 09/17/2024 Refill [facility] [address] [place] [address] Jim Briseno MD, MPH Medication Refill from Last [...] Sign Reading Time Taken Comments Blood Pressure 106/68 12/03/2024 10:07 AM EDT Pulse 98 09/24/2024 2:17 PM EDT Temperature 36.4 C (97.5 F) 09/24/2024 2:17 PM EDT Respiratory Rate 18 09/24/2024 2:17 PM EDT Oxygen Saturation 96% 09/24/2024 2:17 PM EDT Inhaled Oxygen Concentration - - Weight 74.8 kg (165 lb) 12/03/2024 10:07 AM EDT Height 162.6 cm (5' 4.02 ) 07/11/2024 3:18 PM ED T Body Mass Index 28.31 07/11/2024 3:18 PM EDT Plan of Treatment Upcoming Encounters Date Type Department Care Team (Late st Contact Info) Description 12/26/2024 8:15 AM EDT Appointment [facility], Bone Density - [facility] [address] [place] [address] Jim Briseno MD, MPH [address] [place] [address], [address] [address] 01/07/2025 1:10 PM EDT Office Visit [facility] [address] [place] [id number] Jim Briseno MD, MPH [address] [place] [address], [address] [address] [email or web address] Health Maintenance Due Date Last Done Comments [...] 03/18/2023, 11/23/2020, Additional history exists COVID-19 VACCINE (3 - season) 2024 02/09/2021, 05/27/2020 MAMMOGRAM 07/21/2025 07/22/2023, 10/06/2021 Adult Td,Tdap Booster 10/29/2025 10/30/2015 SCREENING FOR DIABETES 12/04/2027 12/03/2024 HEPATITIS C SCREENING Completed 01/11/2024 SMOKING STATUS [...] Procedure Name Priority Date/Time Associated Diagnosis Comments CBC AND DIFFERENTIAL Routine 12/03/2024 11:18 AM EDT Seropositive rheumatoid arthritis Encounter for methotrexate monitoring COMPREHENSIVE METABOLIC PANEL Routine 12/03/2024 11:18 AM EDT Encounter for methotrexate monitoring SEDIMENTATION RATE (ESR) Routine 12/03/2024 11:18 AM EDT Seropositive rheumatoid arthritis C-REACTIVE PROTEIN Routine 12/03/2024 11 :18 AM EDT Seropositive rheumatoid arthritis HC TB CELL MEDIATED ANTIGN RESPNSE GAMMA INTERFERON Routine 12/03/2024 11:18 AM EDT Encounter for monitoring rituximab therapy 25-OH VITAMIN D Routine 12/03/2024 11:18 AM EDT Vitamin D deficiency, unspecified IRON AND IRON BINDING CAPACITY Routine 12/03/2024 11:18 AM EDT Microcytic anemia FERRITIN Routine 12/03/2024 11:18 AM EDT Microcytic anemia OUTSIDE CT CHEST REPORT ONLY Routine 11/30/2024 1:52 PM EDT HEPATITIS C ANTIBODY, QUALITATIVE Routine 01/11/2024 10:51 AM EDT High risk medication use from Last 3 Months or Most Recently Relevant to Health Maintenance Results * Quantiferon-TB Gold (12/03/2024 11:18 AM EDT) Pathologist [facility] QuantiFERON-TB Gold Negative Negative [facility] Comment: (NOTE) No interferon-gamma response to M. tuberculosis antigens was detected. Latent infection with M. tuberculosis is unlikely. A single negative result does not exclude infection with M. tuberculosis. In patients at high risk for M.tuberculosis infection, a second test should be considered in accordance with the 2017 ATS/IDSA/CDC Clinical Practice Guidelines for Diagnosis of Tuberculosis in Adults and Children [Seamusinsohn BRITANY et. al. Clin. Infect. Dis. 2017;64(2):111-115]. The reference range for the 'TB1 Ag minus Nil Result' and 'TB2 Ag minus Nil Result' is an Interferon-gamma level <0.35 IU/mL. TB1 Ag minus Nil 0.00 IU/mL [facility] TB2 Ag minus Nil 0.00 IU/mL [facility] Mitogen minus Nil 2.70 IU/mL [facility] [employer]/[facility] Nil Result 0.01 IU/mL [facility] [employer] Blood 12/03/2024 11:1 8 AM EDT 12/03/2024 11:35 AM EDT us Jim Briseno MD, MPH LAB BLOOD ORDERABLES Fin al Result [facility] [address] [place] [address] * (ABNORMAL) Comprehensive metabolic panel (12/03/2024 11:18 AM EDT) Pathologist [facility] SODIUM 141 133 - 146 mmol/L [facility] POTASSIUM 4.0 3.3 - 5.1 mmol/L [facility] CHLORIDE 106 96 - 108 mmol/L [facility] CO2 24 21 - 35 mmol/L [facility] BUN 12 6 - 19 mg/dL [facility] CREATININE 0.50 0.5 - 1.5 mg/dL [facility] GLUCOSE 81 70 - 99 mg/dL [facility] ALBUMIN 3.9 3.9 - 4.8 g/dL [facility] TOTAL PROTEIN 7.7 6.5 - 8.0 g/dL [facility] CALCIUM 9.9 8.4 - 10.3 mg/dL [facility] ALKALINE PHOSPHATASE 121(H) 39 - 117 U/L [facility] TOTAL BILIRUBIN 0.4 0.0 - 1.2 mg/dL [facility] AST 45(H) 0 - 37 U/L [facility] ALT 32 0 - 40 U/L [facility] GLOBULIN 3.8 1 - 4.8 g/dL [facility] EGFR 113 >59 mL/min/1.7 3m2 [facility] Comment:Estimated glomerular filtration rate calculated using the CKD-EPI refit equation. ANION GAP 15 10 - 20 mmol/L [facility] Blood 12/03/2024 11:1 8 AM EDT 12/03/2024 11:33 AM EDT Jim Briseno MD, MPH LAB BLOOD ORDERABLES Fin al Result Performing Organization Address City/[facility]/ZIP Co de Phone Number [address] [address] * Iron and iron binding capacity (12/03/2024 11:18 AM EDT) IRON 57 30 - 160 ug/dL [facility] IRON BINDING CAPACITY 364 228 - 428 ug/dL [facility] TRANSFERRIN SATURAT. 16 15 - 50 % [facility] Blood 12/03/2024 11:1 8 AM EDT 12/03/2024 11:33 AM EDT us Jim Briseno MD, MPH LAB BLOOD ORDERABLES Fin al Result [address] [address] * 25-OH vitamin D (12/03/2024 11:18 AM EDT) 25 OH VIT D (TOTAL) 31 30 - 60 ng/mL [facility] Blood 12/03/2024 11:1 8 AM EDT 12/03/2024 11:33 AM EDT Jim Briseno MD, MPH LAB BLOOD ORDERABLES Fin al Result Performing Organization Address City/[facility]/ZIP Co de Phone Number [address] [address] * (ABNORMAL) Sedimentation rate (ESR) (12/03/2024 11:18 AM EDT) ESR 45(H) 0 - 30 mm/h [facility] Blood 12/03/2024 11:1 8 AM EDT 12/03/2024 11:33 AM EDT Jim Briseno MD, MPH LAB BLOOD ORDERABLES Fin al Result Performing Organization Address [facility] de Phone Number [address] [address] * (ABNORMAL) CBC and differential (12/03/2024 11:18 AM EDT) WBC 5.24 4.00 - 11.00 K/uL [facility] RBC 5.58(H) 4.00 - 5.20 M/uL [facility] HGB 13.6 12.0 - 16.0 g/dL [facility] HCT 44.8 36.0 - 46.0 % [facility] PLT 245 150 - 450 K/uL [facility] MCV 80.3 80.0 - 100.0 fL [facility] MCH 24.4(L) 27.0 - 31.0 pg [facility] MCHC 30.4(L) 32.0 - 36.0 g/dL [facility] RDW 15.5(H) 11.5 - 14.5 % [facility] MPV 11.0 8.4 - 12.0 fL [facility] NRBC 0.00 0.00 /100 WBCs [facility] ABSOLUTE NRBC 0.00 0.00 K/uL [facility] DIFF METHOD Auto [facility] NEUTS 59.3 48.0 - 76.0 % [facility] LYMPHS 22.5 18.0 - 41.0 % [facility] MONOS 7.3 4.0 - 11.0 % [facility] EOS 9.4(H) 0.0 - 5.0 % [facility] BASOS 1.1 0.0 - 1.5 % [facility] Granulocytes, immature (%) 0.4 0.0 - 0.9 % [facility] ABSOLUTE NEUTS 3.11 1.92 - 7.60 K/uL [facility] ABSOLUTE LYMPHS 1.18 0.72 - 4.10 K/uL [facility] ABSOLUTE MONOS 0.38 0.16 - 1.10 K/uL [facility] ABSOLUTE EOS 0.49 0.00 - 0.50 K/uL [facility] ABSOLUTE BASOS 0.06 0.00 - 0.15 K/uL [facility] Granulocytes, immature 0.02 0.00 - 0.09 K/uL [facility] Blood 12/03/2024 11:1 8 AM EDT 12/03/2024 11:33 AM EDT Jim Briseno MD, MPH LAB BLOOD ORDERABLES Fin al Result [address] [address] * (ABNORMAL) C-Reactive Protein (12/03/2024 11:18 AM EDT) C REACTIVE PROTEIN 8.8(H) 0.0 - 4.0 mg/L [facility] Blood 12/03/2024 11:1 8 AM EDT 12/03/2024 11:33 AM EDT Jim Briseno MD, MPH LAB BLOOD ORDERABLES Fin al Result [address] [address] * Ferritin (12/03/2024 11:18 AM EDT) FERRITIN 46 13 - 150 ug/L [facility] Blood 12/03/2024 11:1 8 AM EDT 12/03/2024 11:33 AM EDT Jim Briseno MD, MPH LAB BLOOD ORDERABLES Fin al Result Performing Organization Address City/[facility]/ZIP Co de Phone Number [address] [address] * Outside CT??Chest Report Only (11/30/2024 1:52 PM EDT) Historical Provider MD IMG CT CHEST Final Res ult * Hepatitis C antibody, qualitative (01/11/2024 10:51 AM EDT) HCV NON-REACTIV E NON-REACTI VE [facility] Blood 01/11/2024 10:5 1 AM EDT 01/11/2024 10:59 AM EDT Jim Briseno MD, MPH LAB BLOOD ORDERABLES Fin al Result Performing Organization Address [facility] Co de Phone Number [address] [address] from Last 3 Months or Most Recently Relevant to Health Maintenance Insurance [place] [address] [employer]AL Member Subscriber Plan / Payer (Ef fective 2021-Present) Name:Alesha Keith Relation to Subscriber:Spouse Name:VINNY KEITH Date of :1900 (Home) Address: [address] [place] [id number] Payer ID:[id number] (NAIC) Group ID:[id number] Type:PPO Address: [facility] [address] [place] [id number] [place]E [place] [address] JOE MARIA[place] [address] [facility] [address] [facility] Care Teams Physiology Teacher Relationship Specialty Start Date End Date Meghann Roth MD [address] [phone] PCP - General Family Medicine 10/18/23 Additional Source Comments The information contained in this document represents components of the legal health record. It is not the complete legal health record.[facility]
== END 2024-12-10 09:21 | disposition home or self-care (01) ==
LOC: HO.HPS 08:36
PROVIDERS: PCP Student in an Organized Health Care Education/Training Program; Visit Provider Hospitalist
DX: J84.9 Interstitial pulmonary disease, unspecified (principal); J45.20 Mild intermittent asthma, uncomplicated; R09.1 Pleurisy; R07.81 Pleurodynia; M06.9 Rheumatoid arthritis, unspecified
CPT/HCPCS: 99214